=== PATIENT | female | born 1955 | race Caucasian/White ===

== ENCOUNTER 2017-01-11 11:54 | Emergency (ER) | payer SELFPAY ==
[~2017-01-11] VITALS: Ht 157.5 cm; Wt 54.0 kg
[~2017-01-11 11:54] MED LIST: AMOXICILLIN500 MG PO; ATENOLOL25 MG PO; ATORVASTATIN CA40 MG PO; AUGMENTIN875TAB PO; BACTRIM DS1 TAB PO; DOXYCYCL HYC100 MG PO; KEFLEX500 M1 PO; LIPITOR20 M1 PO; LIPITOR40 MG PO; NAPROSYN500 MG PO; TRAMADOL HCL50 MG PO; TRAMADOL HYDROC50 MG PO; ULTRAM50 M1 PO; XANAX0.25 MG PO
[2017-01-11] MEDS ORDERED: AMOXICILLIN500 M2 PO (13:14)
[2017-01-11 13:25] VITALS: BP 134/77
== END 2017-01-11 13:25 | disposition home or self-care (01) | DRG 159 ==
LOC: ED 11:54
DX: K08.89 Other specified disorders of teeth and supporting structures (principal); K02.9 Dental caries, unspecified

== ENCOUNTER 2017-01-15 13:30 | Emergency (ER) | payer SELFPAY ==
[~2017-01-15] VITALS: Ht 160 cm; Wt 54.1 kg
[~2017-01-15 13:30] MED LIST changes: +AMOXICILLIN500 M2 PO
[2017-01-15] MEDS ORDERED: AMOXICILLIN875 MG PO (14:27)
[2017-01-15 15:38] VITALS: BP 110/70
== END 2017-01-15 15:38 | disposition home or self-care (01) | DRG 153 ==
LOC: ED 13:30
DX: J02.0 Streptococcal pharyngitis (principal); I10 Essential (primary) hypertension; F17.210 Nicotine dependence, cigarettes, uncomplicated; H92.02 Otalgia, left ear

== ENCOUNTER 2017-06-16 11:15 | Emergency (ER) | payer OTHER ==
[~2017-06-16] VITALS: Ht 160 cm; Wt 57.0 kg
[~2017-06-16 11:15] MED LIST changes: +AMOXICILLIN875 MG PO
[2017-06-16] MEDS ORDERED: AUGMENTIN875TAB PO (11:34)
[2017-06-16 12:22] VITALS: BP 159/82
== END 2017-06-16 12:22 | disposition home or self-care (01) | DRG 159 ==
LOC: ED 11:15
DX: K12.2 Cellulitis and abscess of mouth (principal); E78.00 Pure hypercholesterolemia, unspecified; I10 Essential (primary) hypertension; M79.7 Fibromyalgia; F17.210 Nicotine dependence, cigarettes, uncomplicated

== ENCOUNTER 2017-07-06 13:47 | Emergency (ER) | payer OTHER ==
[~2017-07-06] VITALS: Ht 160 cm; Wt 57.3 kg
[2017-07-06] MEDS ORDERED: ASPERCREME LIDOCA41 TOP (15:45)
[2017-07-06] MEDS ORDERED: MOTRIN400 MG PO (15:45)
[2017-07-06 15:52] VITALS: BP 130/88
== END 2017-07-06 15:58 | disposition home or self-care (01) | DRG 185 ==
LOC: ED 13:47
DX: S22.42XA Multiple fractures of ribs, left side, initial encounter for closed fracture (principal); F17.210 Nicotine dependence, cigarettes, uncomplicated; I10 Essential (primary) hypertension; M79.7 Fibromyalgia; M81.0 Age-related osteoporosis without current pathological fracture; W22.8XXA Striking against or struck by other objects, initial encounter; Y92.009 Unspecified place in unspecified non-institutional (private) residence as the place of occurrence of the external cause

== ENCOUNTER 2018-01-03 12:35 | Emergency (ER) | payer SELFPAY ==
[~2018-01-03] VITALS: Ht 160 cm; Wt 54.5 kg
[~2018-01-03 12:35] MED LIST changes: +ASPERCREME LIDOCA41 TOP; +MOTRIN400 MG PO
[2018-01-03] MEDS ORDERED: MELOXICAM7.5 MG PO (12:53)
[2018-01-03] MEDS ORDERED: KLONOPIN0.5 MG PO (12:53)
[2018-01-03] MEDS ORDERED: RESTORIL15 MG PO (12:55)
[2018-01-03] MEDS ORDERED: AMOXICILLIN500 MG PO (13:08)
[2018-01-03 13:18] VITALS: BP 113/62
== END 2018-01-03 13:22 | disposition home or self-care (01) | DRG 159 ==
LOC: ED 12:35
DX: K04.7 Periapical abscess without sinus (principal); K08.89 Other specified disorders of teeth and supporting structures; F17.210 Nicotine dependence, cigarettes, uncomplicated; H92.02 Otalgia, left ear